=== PATIENT | male | born 2000 | race Hispanic/Latino ===

== ENCOUNTER 2021-05-11 20:16 | Emergency (ER) | payer OTHER ==
[2021-05-11] MEDS ORDERED: Lidocaine 1% w/Epinephrine 1:100K 20 ML VIAL ONE (20:44)
[2021-05-11] MEDS ORDERED: Boostrix 0.5 ML (Tdap) VIAL ONE (20:44)
[2021-05-11] MEDS ORDERED: Lidocaine 2% 20 ml MDV ONE (21:13)
[2021-05-11] MEDS ORDERED: Bacitracin 1 PK ONE (21:46)
[2021-05-11] MEDS ORDERED: Amoxicillin/Potassium Clav 875 MG TAB ONE (22:02)
[2021-05-11] MEDS ORDERED: Sodium Chloride Irrig Solution 250 ML ONE (22:21)
== END 2021-05-11 22:05 | disposition home or self-care (01) ==
LOC: MADERS 20:16
DX: S81.852A Open bite, left lower leg, initial encounter (principal); Z23 Encounter for immunization; W54.0XXA Bitten by dog, initial encounter
CPT/HCPCS: 12002; 90471; 90715